=== PATIENT | female | born 1960 | race Caucasian/White ===

== ENCOUNTER 2017-07-22 21:11 | Emergency (ER) | payer MEDICARE ==
[~2017-07-22 21:11] MED LIST: Iopamidol 370 76% 100 ML VIAL ONE; Sodium Chloride 0.9% 1,000 ML BAG ONE
[2017-07-22] MEDS ORDERED: Morphine 10 MG/ML VIAL ONE (22:24)
[2017-07-22] MEDS ORDERED: Ketorolac Tromethamine 30 MG/ML VIAL ONE (22:25)
[2017-07-22] MEDS ORDERED: Metoclopramide HCl 10 MG/2 ML VIAL ONE (22:25)
[2017-07-22] MEDS ORDERED: Promethazine HCl 25 MG/ML VIAL ONE (22:25)
[2017-07-22 22:57] LABS: ALT (SGPT) 15 U/L (8-55); AST (SGOT) 21 U/L (5-34); Albumin 4.1 g/dL (3.5-5.0); Alkaline Phosphatase 86 U/L (40-150); Anion Gap 16 mmol/L (10-20); BUN (Urea Nitrogen) 12 mg/dL (9.8-20.1); Bilirubin, Total 0.9 mg/dL (0.2-1.2); Calc. Creatinine Clearance 0 mL/min (70-130); Calcium 9.1 mg/dL (7.8-10.44); Carbon Dioxide 23 mmol/L (22-29); Chloride 98 mmol/L (98-107); Estimated GFR-MDRD 83; Globulin 2.6 g/dL (2.4-3.5); Glucose 107 mg/dL (70-105); Lipase 5 U/L (8-78); Potassium 3.4 mmol/L (3.5-5.1); Protein, Total 6.7 g/dL (6.0-8.3); Sodium 134 mmol/L (136-145)
[2017-07-22 23:11] LABS: Hemoglobin 14.3 g/dL (12.0-16.0); Mean Corpuscular Volume 91.3 fl (81.0-99.0); Mean Platelet Volume 5.9 fL (7.4-10.4); Platelet Count 311 thou/uL (130-400); RBC Distribution Width 11.2 % (11.5-14.5); Red Blood Cell (RBC) Count 4.61 mill/uL (4.20-5.40); White Blood Cell (WBC) Count 8.4 thou/uL (4.8-10.8)
[2017-07-22 23:12] LABS: Band 11 % (5-11); Lymphocytes 8 % (21-51); MDiff Complete? YES; Monocytes 4 % (0-10); Neutrophil 73 % (42-75); PLT Morphology Comment Appears Adequate; RBC Morphology Normal; Reactive Lymphocytes 4 % (0-10)
--- NOTE | 2017-07-22 23:29 | RAD ---
FRONTAL VIEW CHEST: INDICATIONS: Upper abdominal pain. COMPARISON: 03/24/2015 FINDINGS: Patchy left basilar density is present. There is generalized interstitial prominence of each lung. The lungs are hyperinflated. There is prominence of the pulmonary vasculature. The cardiac silhouet te is accentuated by the portable technique. IMPRESSION: 1. Patchy left basilar density. This may relate to pleural fluid with adjacent atelectasis and/or p neumonia. 2. Interstitial prominence and mild engorgement of the central pulmonary vasculature may relate to f luid overload. Recommend clinical correlation. Imaging followup to resolution is recommended. POS: [facility]
[2017-07-23] MEDS ORDERED: Azithromycin 500 MG VIAL ONE (02:27)
[2017-07-23 02:49] LABS: Lactic Acid 1.3 mmol/L (0.5-2.2)
--- NOTE | 2017-07-23 07:09 | CT ---
CT ABDOMEN AND PELVIS WITH CONTRAST: CLINICAL INDICATIONS: Abdominal pain. COMPARISON: Reference made to an 10/07/[address] exam. FINDINGS: There is lobar consolidation at the imaged left lung base, compatible with pneumonia. Associated ple ural fluid is present. There is heterogeneity of the consolidation, which could relate to necrotizin g pneumonia. Correlate clinically. There is moderate distention of the gallbladder. Patient motion degrades image quality and thus limi ts assessment. There is intrahepatic biliary ductal dilatation. Parenchymal, punctate hypodensity o f the lateral segment, left hepatic lobe, is present, too small to further characterize. No evidence of adrenal mass or focal splenic lesion. No acute pancreatic pathology. The abdominal aorta is non aneurysmal. There is scattered vascular disease. No free air. Moderate distention of the unopacifi ed urinary bladder is present. There is osseous degenerative change. There is a small hypodensity o f the lateral aspect of the lower pole left kidney and punctate parenchymal hypodensity at the anteri or upper pole left kidney, likely cyst, although too small to definitively characterize. IMPRESSION: 1. Prominent degree of consolidation at the left lung base with adjacent pleural fluid. There is he terogeneity of the consolidated lung parenchyma; therefore, entities such as necrotizing pneumonia ar e not excluded. 2. Moderate distention of the gallbladder and intrahepatic biliary ductal dilatation. No radiopaque cholelithiasis is identified. Consider gallbladder ultrasound as necessary for further assessment. 3. Additional details are as described above. POS: [facility]
== END 2017-07-23 03:05 | disposition short-term general hospital (02) ==
LOC: MADERS 21:11
DX: J18.9 Pneumonia, unspecified organism (principal); K82.9 Disease of gallbladder, unspecified; J44.9 Chronic obstructive pulmonary disease, unspecified; F17.210 Nicotine dependence, cigarettes, uncomplicated; Z79.899 Other long term (current) drug therapy
CPT/HCPCS: 36415; 71045; 74177; 80053; 82150; 83605; 83690; 83880; 85025; 87040; 96361; 96365; 96375; J0456; J1885; J1956; J2270; J2550; J2765; J7050; J7620

== ENCOUNTER 2017-07-30 20:38 | Emergency (ER) | payer MEDICARE ==
[~2017-07-30 20:38] MED LIST changes: -Iopamidol 370 76% 100 ML VIAL ONE; -Sodium Chloride 0.9% 1,000 ML BAG ONE; +Sodium Chloride 0.9% 100 ML BAG ONE
--- NOTE | 2017-07-30 21:40 | RAD ---
ONE VIEW CHEST: 07/30/17 COMPARISON: 07/27/17 HISTORY: Pain. FINDINGS: Normal cardiac silhouette. Lungs are hyperinflated. Pleural and parenchymal change in the left lung b ase. No pneumothorax. No osseous abnormalities. IMPRESSION: 1. COPD. 2. Pleural and parenchymal changes in the left lung base. Continued surveillance. POS: [facility]
[2017-07-30] MEDS ORDERED: Promethazine HCl 25 MG/ML VIAL ONE (22:17)
[2017-07-30] MEDS ORDERED: Morphine 4 MG/ML VIAL ONE (22:19)
[2017-07-30 22:42] LABS: CKMB 1.7 ng/mL (0-6.6)
[2017-07-30 22:44] LABS: INR-International Normal Ratio 1.1; PTT 39.3 SEC (22.9-36.1); Prothrombin Time 13.8 SEC (12.0-14.7)
[2017-07-30 22:46] LABS: Troponin I 0.269 ng/mL (< 0.028)
--- NOTE | 2017-07-30 22:49 | RAD ---
THREE VIEWS LEFT RIBS 07/30/17 HISTORY: Cough. Left rib pain. COMPARISON: None. FINDINGS: There appear to be pleural and parenchymal changes in the left hemithorax. Left apical pleural thicke sayra. Chronic change in the lung parenchyma are suspected. Please refer to separate chest radiograph report for further detail. With regard to the left ribs, no fracture. No cortical irregularity. No pe riosteal reaction. IMPRESSION: No evidence of a left hip fracture. POS: [facility]
[2017-07-30 22:56] LABS: #Basophils 0.1 thou/uL (0.0-0.2); #Eosinphils 0.4 thou/uL (0.0-0.7); #Lymphocytes 3.4 thou/uL (1.20-3.40); #Monocytes 0.8 thou/uL (0.11-0.59); #Neutrophils 14.3 thou/uL (1.40-6.50); %Basophils 0.7 % (0.0-1.0); %Eosinophils 2.1 % (0.0-10.0); %Lymphocytes 17.6 % (21.0-51.0); %Monocytes 4.4 % (0.0-10.0); %Neutrophils 75.1 % (42.0-75.0); Hemoglobin 12.7 g/dL (12.0-16.0); Mean Corpuscular HGB CONC 34.5 g/dL (32.0-36.0); Mean Platelet Volume 5.7 fL (7.4-10.4); Platelet Count 469 thou/uL (130-400); RBC Distribution Width 11.7 % (11.5-14.5); Red Blood Cell (RBC) Count 4.11 mill/uL (4.20-5.40)
[2017-07-30 22:57] LABS: Anion Gap 20 mmol/L (10-20); Carbon Dioxide 21 mmol/L (22-29); Chloride 94 mmol/L (98-107); Potassium 5.1 mmol/L (3.5-5.1)
[2017-07-30 22:58] LABS: BUN (Urea Nitrogen) 9 mg/dL (9.8-20.1); Bilirubin, Total 0.4 mg/dL (0.2-1.2); Calc. Creatinine Clearance 0 mL/min (70-130); Estimated GFR-MDRD Greater than 90; Glucose 124 mg/dL (70-105); Protein, Total 7.7 g/dL (6.0-8.3)
[2017-07-30 22:59] LABS: Albumin 3.6 g/dL (3.5-5.0); Globulin 4.1 g/dL (2.4-3.5)
[2017-07-30 23:00] LABS: ALT (SGPT) 23 U/L (8-55); AST (SGOT) 36 U/L (5-34); Alkaline Phosphatase 77 U/L (40-150); Sodium 129 mmol/L (136-145)
[2017-07-31] MEDS ORDERED: Clindamycin 150 MG CAP ONE (01:03)
[2017-07-31] MEDS ORDERED: HYDROcodone/Acetaminophen 10/325 mg Tablet ONE (01:07)
== END 2017-07-31 01:20 | disposition home or self-care (01) ==
LOC: MADERS 20:38
DX: S29.011A Strain of muscle and tendon of front wall of thorax, initial encounter (principal); E87.1 Hypo-osmolality and hyponatremia; J44.9 Chronic obstructive pulmonary disease, unspecified; Z87.891 Personal history of nicotine dependence; Z79.899 Other long term (current) drug therapy; X58.XXXA Exposure to other specified factors, initial encounter
CPT/HCPCS: 36415; 71045; 80053; 82553; 83880; 84484; 85025; 85610; 85730; 93005; 94760; 96365; 96375; J2270; J2550; J7050

== ENCOUNTER 2017-08-02 09:40 | Outpatient (CLI) | payer MEDICARE ==
[2017-08-02 10:23] LABS: #Basophils 0.2 thou/uL (0.0-0.2); #Eosinphils 0.1 thou/uL (0.0-0.7); #Lymphocytes 2.3 thou/uL (1.20-3.40); #Monocytes 0.9 thou/uL (0.11-0.59); #Neutrophils 11.4 thou/uL (1.40-6.50); %Eosinophils 0.7 % (0.0-10.0); %Lymphocytes 15.5 % (21.0-51.0); %Monocytes 6.1 % (0.0-10.0); %Neutrophils 76.7 % (42.0-75.0); Hemoglobin 12.3 g/dL (12.0-16.0); Mean Corpuscular HGB CONC 34.1 g/dL (32.0-36.0); Mean Corpuscular Hemoglobin 31.7 pg (27.0-31.0); Mean Corpuscular Volume 93.1 fl (81.0-99.0); Mean Platelet Volume 5.6 fL (7.4-10.4); Platelet Count 633 thou/uL (130-400); RBC Distribution Width 11.7 % (11.5-14.5); Red Blood Cell (RBC) Count 3.87 mill/uL (4.20-5.40); White Blood Cell (WBC) Count 14.9 thou/uL (4.8-10.8)
--- NOTE | 2017-08-02 10:24 | RAD ---
CHEST 2 VIEWS: COMPARISON: 12/22/15, 07/30/17. HISTORY: Pneumonia. FINDINGS: Worsening opacification of the left hemithorax due to pleural and parenchymal changes. Stable aerati on of the left upper lobe and right lung. There is hyperinflation. Heart size is within normal limi ts. IMPRESSION: Worsening opacification of the left lower lobe due to pleural and parenchymal changes. POS: [facility]
[2017-08-02 10:40] LABS: ALT (SGPT) 18 U/L (8-55); AST (SGOT) 23 U/L (5-34); Albumin 3.8 g/dL (3.5-5.0); Alkaline Phosphatase 71 U/L (40-150); Anion Gap 16 mmol/L (10-20); BUN (Urea Nitrogen) 9 mg/dL (9.8-20.1); Bilirubin, Total 0.5 mg/dL (0.2-1.2); Calc. Creatinine Clearance 0 mL/min (70-130); Calcium 9.6 mg/dL (7.8-10.44); Carbon Dioxide 24 mmol/L (22-29); Chloride 95 mmol/L (98-107); Estimated GFR-MDRD Greater than 90; Globulin 3.6 g/dL (2.4-3.5); Glucose 97 mg/dL (70-105); Potassium 4.4 mmol/L (3.5-5.1); Protein, Total 7.4 g/dL (6.0-8.3); Sodium 131 mmol/L (136-145)
== END 2017-08-02 09:41 | disposition home or self-care (01) ==
LOC: MADLAB 09:40
PROVIDERS: ATTEND Internal Medicine
DX: J18.9 Pneumonia, unspecified organism (principal); E87.1 Hypo-osmolality and hyponatremia; R53.1 Weakness; R91.8 Other nonspecific abnormal finding of lung field
CPT/HCPCS: 36415; 71046; 80053; 85025

== ENCOUNTER 2017-08-14 08:26 | Outpatient (CLI) | payer MEDICARE ==
[2017-08-14 09:53] LABS: #Basophils 0.3 thou/uL (0.0-0.2); #Eosinphils 0.2 thou/uL (0.0-0.7); #Lymphocytes 5.5 thou/uL (1.20-3.40); #Monocytes 0.9 thou/uL (0.11-0.59); #Neutrophils 4.3 thou/uL (1.40-6.50); %Basophils 2.3 % (0.0-1.0); %Eosinophils 1.6 % (0.0-10.0); %Lymphocytes 49.2 % (21.0-51.0); %Monocytes 8.1 % (0.0-10.0); %Neutrophils 38.9 % (42.0-75.0); Hemoglobin 11.8 g/dL (12.0-16.0); Mean Corpuscular HGB CONC 33.4 g/dL (32.0-36.0); Mean Corpuscular Hemoglobin 30.1 pg (27.0-31.0); Mean Corpuscular Volume 90.1 fL (78.0-98.0); Mean Platelet Volume 4.8 fL (7.4-10.4); Platelet Count 779 thou/uL (130-400); RBC Distribution Width 11.7 % (11.5-14.5); Red Blood Cell (RBC) Count 3.91 mill/uL (4.20-5.40); White Blood Cell (WBC) Count 11.1 thou/uL (4.8-10.8)
[2017-08-14 10:09] LABS: ALT (SGPT) 52 U/L (8-55); AST (SGOT) 35 U/L (5-34); Alkaline Phosphatase 90 U/L (40-150); Anion Gap 16 mmol/L (10-20); BUN (Urea Nitrogen) 10 mg/dL (9.8-20.1); Bilirubin, Total 0.2 mg/dL (0.2-1.2); Calc. Creatinine Clearance 0 mL/min (70-130); Calcium 9.7 mg/dL (7.8-10.44); Carbon Dioxide 23 mmol/L (22-29); Chloride 99 mmol/L (98-107); Estimated GFR-MDRD Greater than 90; Globulin 3.7 g/dL (2.4-3.5); Glucose 85 mg/dL (70-105); Protein, Total 7.7 g/dL (6.0-8.3); Sodium 134 mmol/L (136-145)
--- NOTE | 2017-08-14 10:12 | RAD ---
TWO VIEWS CHEST: Comparison: 08-06-17 History: COPD. FINDINGS: Two views of the chest shows a normal sized cardiomediastinal silhouette. There are small bilateral p leural effusions, left greater than right. There is no evidence of consolidation or mass. IMPRESSION: Small bilateral pleural effusions. POS: [facility]
[2017-08-14 10:21] LABS: Thyroid Stimulating Hormone 1.1504 uIU/mL (0.35-4.94)
[2017-08-14 16:58] LABS: Iron 75 ug/dL (50-170); Iron Binding Capacity, Total 356 mcg/dL (265-497)
[2017-08-14 17:10] LABS: Ferritin 202.54 ng/mL (10-291); Free T4 (Free Thyroxine) 1.13 ng/dL (0.70-1.48)
== END 2017-08-14 08:27 | disposition home or self-care (01) ==
LOC: MADLABBHPM 08:26
PROVIDERS: ATTEND Internal Medicine Pulmonary Disease
DX: J90 Pleural effusion, not elsewhere classified (principal); E87.1 Hypo-osmolality and hyponatremia; D64.9 Anemia, unspecified; E04.1 Nontoxic single thyroid nodule
CPT/HCPCS: 36415; 71046; 80053; 82607; 82728; 83540; 83550; 84439; 84443; 85025

== ENCOUNTER 2017-09-15 14:41 | Emergency (ER) | payer MEDICARE ==
[2017-09-15] MEDS ORDERED: diphenhydrAMINE 25 MG CAP ONE (15:03)
[2017-09-15] MEDS ORDERED: Dexamethasone 4 MG TAB ONE (15:03)
== END 2017-09-15 15:45 | disposition home or self-care (01) ==
LOC: MADERS 14:41
DX: T63.461A Toxic effect of venom of wasps, accidental (unintentional), initial encounter (principal); J44.9 Chronic obstructive pulmonary disease, unspecified; Z87.891 Personal history of nicotine dependence; Z79.899 Other long term (current) drug therapy; Z79.891 Long term (current) use of opiate analgesic
CPT/HCPCS: 99282; J8540

== ENCOUNTER 2023-03-16 17:32 | Emergency (ER) | payer MEDICARE ==
[2023-03-16 21:55] LABS: #Basophils 0.1 thou/uL (0.0-0.2); #Lymphocytes 1.8 thou/uL (1.20-3.40); #Monocytes 0.7 thou/uL (0.11-0.59); #Neutrophils 9.7 thou/uL (1.40-6.50); %Eosinophils 0.4 % (0.0-10.0); %Lymphocytes 14.8 % (21.0-51.0); %Monocytes 5.6 % (0.0-10.0); %Neutrophils 78.2 % (42.0-75.0); Hematocrit 34.9 % (36.0-47.0); Hemoglobin 11.5 g/dL (12.0-16.0); Mean Corpuscular Hemoglobin 32.1 pg (27.0-31.0); Mean Corpuscular Volume 97.5 fl (78.0-98.0); Mean Platelet Volume 6.7 fL (7.4-10.4); Platelet Count 318 10x3/uL (130-400); RBC Distribution Width 12.4 % (11.5-14.5); Red Blood Cell (RBC) Count 3.58 mill/uL (4.20-5.40); White Blood Cell (WBC) Count 12.4 10x3/uL (4.8-10.8)
[2023-03-16 22:09] LABS: INR-International Normal Ratio 0.9; Prothrombin Time 12.8 sec (12.0-14.7)
[2023-03-16 22:12] LABS: D-Dimer Test 0.36 *mcg/mL (0.27-0.43)
[2023-03-16 22:15] LABS: Base Excess-Venous 17.3 mmol/L (-2.0 to 3.0); Bicarbonate (HCO3v) 47.3 mmol/L (22.0-28.0); CO2 Tension (PvCO2) 85.2 mmHg (42.0-51.0); Calcium, Ionized 1.14 mmol/L (1.15-1.33); Chloride 87 mmol/L (98-107); Potassium 4.5 mmol/L (3.5-5.1); Sodium 135 mmol/L (138-145); T. Carbon Dioxide 49.9 mmol/L (22.0-28.0); vO2 Saturation-calc 99.7 % (60.0-85.0)
[2023-03-16 22:20] LABS: ALT (SGPT) 13 U/L (8-55); AST (SGOT) 21 U/L (5-34); Albumin 4.2 g/dL (3.4-4.8); Alkaline Phosphatase 65 U/L (40-110); Anion Gap 17 mmol/L (10-20); BUN (Urea Nitrogen) 8 mg/dL (9.8-20.1); Bilirubin, Total 0.3 mg/dL (0.2-1.2); Calc. Creatinine Clearance 0 mL/min (70-130); Calcium 9.2 mg/dL (7.8-10.44); Carbon Dioxide 38 mmol/L (23-31); Estimated GFR 105; Globulin 2.2 g/dL (2.4-3.5); Glucose 78 mg/dL (80-115); Lipase 9 U/L (8-78); Magnesium 1.8 mg/dL (1.6-2.6); Protein, Total 6.4 g/dL (5.8-8.1)
[2023-03-16 22:26] LABS: Troponin I Less than 0.010 ng/mL (< 0.028)
[2023-03-16 22:27] LABS: Chloride 87 mmol/L (98-107); Potassium 4.9 mmol/L (3.5-5.1); Sodium 137 mmol/L (136-145)
[2023-03-16] MEDS ORDERED: Ipratropium/Albuterol 3 ML NEB ONE (23:23)
[2023-03-17] MEDS ORDERED: LevoFLOXacin 250 MG TAB ONE (00:05)
[2023-03-17] MEDS ORDERED: predniSONE 20 MG TAB ONE (00:05)
[2023-03-17] MEDS ORDERED: Cefdinir 300 MG CAP PO SCH (00:15)
== END 2023-03-17 00:28 | disposition home or self-care (01) ==
LOC: MADERS 17:32
DX: R06.02 Shortness of breath (principal); J44.9 Chronic obstructive pulmonary disease, unspecified; F17.210 Nicotine dependence, cigarettes, uncomplicated; Z79.899 Other long term (current) drug therapy
CPT/HCPCS: 71045; 80053; 82330; 82803; 83605; 83690; 83735; 83880; 84484; 85025; 85379; 85610; 86850; 86900; 86901; 87040; 93005; J7512; J7620

== ENCOUNTER 2023-04-25 03:53 | Emergency (ER) | payer MEDICARE ==
[2023-04-25] MEDS ORDERED: Acetaminophen/Codeine 30-300mg Tablet ONE (04:13)
[2023-04-25] MEDS ORDERED: Albuterol 2.5 MG (3 mL) NEB ONE (05:31)
[2023-04-25] MEDS ORDERED: Sodium Chloride 0.9% 1,000 ML ONE (09:29)
[2023-04-25 10:00] LABS: Bilirubin Negative (Negative); Blood, Urine Small (Negative); Clarity Clear (Clear); Glucose, Urine (Dipstick) Negative (Negative); Ketone, Urine Trace mg/dL (Negative); Leukocyte Negative (Negative); Nitrite Negative (Negative); Protein, Urine (Dipstick) 30 mg/dL (Neg-Trace); Urobilinogen 0.2 mg/dL (Less than 2)
[2023-04-25 10:18] LABS: CAUTI Indications for Culture Pelvic or flank pain; Specific Gravity, Urine 1.023 (1.002-1.036); WBC/HPF 0-3 HPF (0-3)
[2023-04-25 10:20] LABS: Bacteria/HPF 1+ HPF (None Seen); Urine Culture Reflex No No
== END 2023-04-25 10:35 | disposition home or self-care (01) ==
LOC: MADERS 03:53
DX: N39.0 Urinary tract infection, site not specified (principal); I10 Essential (primary) hypertension; J44.9 Chronic obstructive pulmonary disease, unspecified; F17.210 Nicotine dependence, cigarettes, uncomplicated; Z79.899 Other long term (current) drug therapy
CPT/HCPCS: 72131; 81001; 96360; J7050; J7611